=== PATIENT | female | born 2000 | race Caucasian/White ===

== ENCOUNTER 2021-10-16 02:43 | Emergency (ER) | payer MEDICAID ==
[~2021-10-16] VITALS: Ht 172.7 cm; Wt 64.4 kg
[2021-10-16 02:46] VITALS: BP 123/78
--- NOTE | 2021-10-16 02:50 | NUR ---
Dr. Jorgensen examining patient.
[2021-10-16 02:58] VITALS: BP 123/78
--- NOTE | 2021-10-16 02:58 | NUR ---
Patient D/C to custody.
== END 2021-10-16 02:58 ==
LOC: MED 02:43
DX: Z02.89 Encounter for other administrative examinations (principal)
CPT/HCPCS: 99283